=== PATIENT | female | born 1990 | race African-American/Black ===

== ENCOUNTER 2017-11-18 14:50 | Emergency (ER) | payer MEDICAID ==
[~2017-11-18] VITALS: Ht 165.1 cm; Wt 154.2 kg
[~2017-11-18 14:50] MED LIST: ACHD5005 PO; AMOX400S52 PO; AMOX500C2 PO; AZIT-21 PO; AZTH250C PO; BUPR150T6; CEFP250T2; CEPH500C PO; CLAR-19 PO; CYCL10TA9 PO; CYCL5TAB11 PO; DEXM2.5T PO; DIPH50CA33; FLC150T PO; FRSM20T PO; FURO20TA4 PO; HCT25T PO; HYDR-3454 PO; HYDR118S10 PO; HYDR480S10 PO; IPRA3AMP19 IH; LMT25T; LTH450TCR; METH4TAB; METH4TAB PO; MONT10TA21; NAPR-243 PO; NF-XOP-HFA; NF-XOP-HFA IH; PHEN118S12; PRD10T PO; PRD50T PO; SULF1TAB34 PO; SULF1TAB38 PO; TRAM50TA2 PO; TRM50T PO; ZIPR60CA6; ZPR40C
--- OUTSIDE RECORDS SUMMARY | 2017-11-18 14:57 | XMS REPORT | Clinical Summary ---
Author Author [facility] Address Unknown Phone Unavailable Allergies Not on File Current Medications Not on file Active Problems Not on file Social History Tobacco Use Types Packs/Day Years Used Date Never Assessed Sex Assigned at Date Recorded Not on file Plan of Treatment Health Maintenance Due Date Last Done Comments Varicella Vaccines (1 of 2003 2 - 2 Dose Adolescent Series) DTaP,Tdap,and Td Vaccines 2009 (1 - Tdap) CERVICAL CANCER SCREENING 2011 Influenza Vaccine (#1) 2017 Results Not on filefrom Last 3 Months
--- OUTSIDE RECORDS SUMMARY | 2017-11-18 14:58 | XMS REPORT ---
Author Author BASIA DE LOS SANTOS Organization [facility] Address [address] [place] [address] Care Team Providers Care Blender Snuff Name Role Phone FILIBERTO BASIA Unavailable PROBLEMS Type Condition ICD9-CM Code [id number] Code Onset Dates Condition Status SNOMED Code Problem Unspecified backache 724.5 Active 311513306 Problem Unspecified otitis media 382.9 Active 54934224 Problem Essential hypertension, benign 401.1 Active 9570178 Problem Encounter for long-term (current) use of other medications V58.69 Active 318614589 Problem Lumbago 724.2 Active 232472189 Problem Pain in thoracic spine 724.1 Active 058168364 Problem Tenosynovitis of foot and ankle 727.06 Active 309729480 Problem Bipolar 1 disorder F31.9 Active 744183923 Problem Hypertension, benign I10 Active 64472690 Problem Unspecified episodic mood disorder 296.90 Active 263910755 Problem Anxiety state, unspecified 300.00 Active 511273335 Problem Scabies 133.0 Active 979799031 Problem Leukocytosis, unspecified 288.60 Active 340575956 ALLERGIES Unknown Allergies SOCIAL HISTORY No smoking Hx information available PLAN OF CARE VITAL SIGNS Height 65 in 2016-11-19 Weight 346 lbs 2016-11-19 Heart Rate 88 bpm 2016-11-19 Respiratory Rate 16 2016-11-19 BMI 57.57 kg/m2 2016-11-19 Blood pressure systolic 128 mmHg 2016-11-19 Blood pressure diastolic 84 mmHg 2016-11-19 MEDICATIONS Medication Instructions Dosage Frequency Start Date End Date Duration Status Hydrochlorothiazide 25 MG Orally Once a day 1 tablet 24h Nov, 30 day(s) Active Geodon 20 MG Orally Twice a day 1 capsule with food 12h Nov, 30 day(s) Active RESULTS No Results PROCEDURES Procedure Date Ordered Related Diagnosis Body Site Office Visit, Est Pt., Level 2 Nov 19, 2016 IMMUNIZATIONS No Known Immunizations
--- OUTSIDE RECORDS SUMMARY | 2017-11-18 14:58 | XMS REPORT | Continuity of Care Document ---
Author Author [facility] Address Unknown Phone Unavailable Allergies Active Description Code Type Severity Reaction Onset Reported/Identified Relationship to Patient Clinical Status Yes No Known Drug Allergies [id number] Drug Allergy Unknown N/A 12/09/2013 Yes narcotics OA N/A N /A 04/12/2014 Medications There is no data. 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 09/04/2010 729.5 PAIN IN LIMB 09/04/2010 278.01 OBESITY MORBID 09/04/2010 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 09/04/2010 729.5 PAIN IN LIMB 09/04/2010 NIA MARTINS MD 278.01 OBESITY MORBID 09/04/2010 NIA MARTINS MD 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 09/04/2010 NIA MARTINS MD 729.5 PAIN IN LIMB 09/04/2010 JUSTIN VU DO 278.01 OBESITY MORBID 09/04/2010 JUSTIN VU DO 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 09/04/2010 JUSTIN VU DO 729.5 PAIN IN LIMB 09/04/2010 JUSTIN VU DO 278.01 OBESITY MORBID 09/04/2010 JUSTIN VU DO 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 09/04/2010 JUSTIN VU DO 729.5 PAIN IN LIMB 09/06/2010 NIA MARTINS MD 278.01 OBESITY MORBID BMI >40 09/06/2010 NIA MARTINS MD 782.3 soft tissue swelling (non-joint) [Sx] 09/06/2010 JOANN PETERS MD 278.01 OBESITY MORBID BMI >40 09/06/2010 JOANN PETERS MD 782.3 soft tissue swelling (non-joint) [Sx] 09/06/2010 278.01 OBESITY MORBID BMI >40 09/06/2010 782.3 soft tissue swelling (non-joint) [Sx] 09/06/2010 278.01 OBESITY MORBID BMI >40 09/06/2010 782.3 soft tissue swelling (non-joint) [Sx] 09/06/2010 NIA MARTINS MD 278.01 OBESITY MORBID BMI >40 09/06/2010 NIA MARTINS MD 782.3 soft tissue swelling (non-joint) [Sx] 09/06/2010 JUSTIN VU DO 278.01 OBESITY MORBID BMI >40 09/06/2010 JUSTIN VU DO 782.3 soft tissue swelling (non-joint) [Sx] 09/06/2010 JUSTIN VU DO 278.01 OBESITY MORBID BMI >40 09/06/2010 JUSTIN VU DO 782.3 soft tissue swelling (non-joint) [Sx] 09/06/2010 Ot 729.81 09/06/2010 Ot 729.82 09/06/2010 Ot 782.3 02/15/2012 Ot 305.1 02/15/2012 Ot 466.0 02/15/2012 Ot 493.90 02/15/2012 Ot 786.2 02/17/2012 Ot 465.9 02/17/2012 Ot 786.2 06/06/2012 Ot 277.7 06/06/2012 Ot 278.01 06/06/2012 Ot 780.39 06/06/2012 Ot 786.50 06/06/2012 Ot 787.20 06/06/2012 Ot 825.25 06/06/2012 Ot E888.9 06/06/2012 Ot V85.44 09/14/2012 NIA MARTINS MD 133.0 SCABIES 09/14/2012 NIA MARTINS MD 724.5 BACKACHE 09/14/2012 JOANN PETERS MD 133.0 SCABIES 09/14/2012 JOANN PETERS MD 724.5 BACKACHE 09/14/2012 133.0 SCABIES 09/14/2012 724.5 BACKACHE 09/14/2012 133.0 SCABIES 09/14/2012 724.5 BACKACHE 09/14/2012 NIA MARTINS MD 133.0 SCABIES 09/14/2012 NIA MARTINS MD 724.5 BACKACHE 09/14/2012 VU DO, JUSTIN K 133.0 SCABIES 09/14/2012 VU DO, JUSTIN K 724.5 BACKACHE 09/14/2012 VU DO, JUSTIN K 133.0 SCABIES 09/14/2012 VU DO, JUSTIN K 724.5 BACKACHE 10/15/2012 Ot 327.23 11/02/2012 Ot 462 11/02/2012 Ot 463 11/26/2012 Ot 462 01/01/2013 Ot 724.2 01/08/2013 NIA MARTINS MD 288.60 LEUKOCYTOSIS 01/08/2013 NIA MARTINS MD 300.00 anxiety 01/08/2013 NIA MARTINS MD 401.1 ESSENTIAL HYPERTENSION BENIGN 01/08/2013 JOANN PETERS MD 288.60 LEUKOCYTOSIS 01/08/2013 JOANN PETERS MD 300.00 anxiety 01/08/2013 JOANN PETERS MD 401.1 ESSENTIAL HYPERTENSION BENIGN 01/08/2013 288.60 LEUKOCYTOSIS 01/08/2013 300.00 anxiety 01/08/2013 401.1 ESSENTIAL HYPERTENSION BENIGN 01/08/2013 288.60 LEUKOCYTOSIS 01/08/2013 300.00 anxiety 01/08/2013 401.1 ESSENTIAL HYPERTENSION BENIGN 01/08/2013 NIA MARTINS MD 288.60 LEUKOCYTOSIS 01/08/2013 NIA MARTINS MD 300.00 anxiety 01/08/2013 NIA MARTINS MD 401.1 ESSENTIAL HYPERTENSION BENIGN 01/08/2013 VU DO, JUSTIN K 288.60 LEUKOCYTOSIS 01/08/2013 VU DO, JUSTIN K 300.00 anxiety 01/08/2013 CYRUS VU DOSol Vela 401.1 ESSENTIAL HYPERTENSION BENIGN 01/08/2013 CYRUS VU DOA K 288.60 LEUKOCYTOSIS 01/08/2013 CYRUS VU DOA K 300.00 anxiety 01/08/2013 JUSTIN VU DO 401.1 ESSENTIAL HYPERTENSION BENIGN 02/03/2013 Ot 493.90 02/03/2013 Ot 786.50 03/02/2013 382.9 OTITIS MEDIA 03/02/2013 382.9 OTITIS MEDIA 03/02/2013 NIA MARTINS MD 382.9 OTITIS MEDIA 03/02/2013 MIRELLA JUSTIN ROSA 382.9 OTITIS MEDIA 03/02/2013 MIRELLA JUSTIN ROSA 382.9 OTITIS MEDIA 03/11/2013 727.06 TENOSYNOVITIS OF FOOT AND ANKLE 03/11/2013 NIA MARTINS MD 727.06 TENOSYNOVITIS OF FOOT AND ANKLE 03/11/2013 JUSTIN VU DO 727.06 TENOSYNOVITIS OF FOOT AND ANKLE 03/11/2013 JUSTIN VU DO 727.06 TENOSYNOVITIS OF FOOT AND ANKLE 03/12/2013 JOSETTE HAYES, ADALI Horton Ot 382.9 03/12/2013 JOSETTE HAYES, ADALI Sol Ot 388.70 04/02/2013 NIA MARTINS MD 296.90 MOOD DISORDER NOS 04/02/2013 JUSTIN VU DO 296.90 MOOD DISORDER NOS 04/02/2013 JUSTIN VU DO 296.90 MOOD DISORDER NOS 06/04/2013 NIA MARTINS MD V58.69 MEDICATION HIGH RISK 06/04/2013 JUSTIN VU DO V58.69 MEDICATION HIGH RISK 06/04/2013 JUSTIN VU DO V58.69 MEDICATION HIGH RISK 06/12/2013 PARMJIT HAYES, ARLENE T Ot 724.1 06/12/2013 PARMJIT HAYES, ARLENE Henderson Ot 847.1 06/12/2013 PARMJIT HAYES, ARLENE T Ot E000.8 06/12/2013 PARMJIT HAYES, ARLENE T Ot E015.0 06/12/2013 PARMJIT HAYES, ARLENE Henderson Ot E849.0 06/12/2013 PARMJIT HAYES, ARLENE Henderson Ot E928.9 06/28/2013 FRAN HAYES, JOANN M Ot 278.01 06/28/2013 FRAN HAYES, JOANN M Ot 300.00 06/28/2013 FRAN HAYES, JOANN M Ot 311 06/28/2013 FRAN HAYES, JOANN M Ot 314.01 06/28/2013 FRAN HAYES, JOANN M Ot 338.29 06/28/2013 FRAN HAYES, JOANN M Ot 969.70 06/28/2013 FRAN HAYES, JOANN M Ot E849.0 06/28/2013 FRAN HAYES, JOANN M Ot E854.2 06/28/2013 FRAN HAYES, JOANN M Ot V03.82 06/28/2013 FRAN HAYES, JOANN M Ot V85.45 07/10/2013 ZARI HAYES, ANGELA R Ot 490 07/10/2013 ZARI HAYES, ANGELA R Ot 786.05 09/12/2013 JOSETTE HAYES, ADALI A Ot 910.4 09/12/2013 JOSETTE HAYES, ADALI A Ot E000.8 09/12/2013 JOSETTE HAYES, ADALI A Ot E906.4 12/09/2013 JOSETTE HAYES, ADALI A Ot 466.0 12/09/2013 JOSETTE HAYES, ADALI A Ot 786.05 03/30/2014 JUANA HAYES, JESSIE Ramirez Ot 682.3 08/30/2014 MIHAI MONAHAN TRANSMISSION TESTER Ot 724.2 08/30/2014 MIHAI MONAHAN TRANSMISSION TESTER Ot 724.4 09/01/2014 VU DO JUSTIN K 724.1 PAIN IN THORACIC SPINE 09/01/2014 VU DO JUSTIN K 724.2 BACK PAIN, LOWER 09/01/2014 VU DO JUSTIN K 724.1 PAIN IN THORACIC SPINE 09/01/2014 VU DO, JUSTIN K 724.2 BACK PAIN, LOWER 10/30/2014 Ot 242.90 10/30/2014 JEWEL MELENDREZ MIXER WHIPPED TOPPING Ot 724.1 10/30/2014 JEWEL MELENDREZ MIXER WHIPPED TOPPING Ot 724.2 10/30/2014 MIHAI MONAHAN TRANSMISSION TESTER Ot 847.2 10/30/2014 MIHAI MONAHAN TRANSMISSION TESTER Ot 959.19 10/30/2014 MIHAI MONAHAN TRANSMISSION TESTER Ot E000.8 10/30/2014 MIHAI MONAHAN TRANSMISSION TESTER Ot E812.0 12/28/2014 JOSETTE HAYES, ADALI A Ot 401.9 12/28/2014 JOSETTE HAYES, ADALI A Ot 881.00 12/28/2014 JOSETTE HAYES, ADALI A Ot 920 12/28/2014 JOSETTE HAYES, ADALI A Ot E000.8 12/28/2014 JOSETTE HAYES, ADALI A Ot E968.9 05/02/2015 Ot 242.90 05/02/2015 PARVINJEWEL MIXER WHIPPED TOPPING Ot 724.1 05/02/2015 MADJEWEL Chandra MIXER WHIPPED TOPPING Ot 724.2 07/24/2015 JUANA HAYES, JESSIE Ramirez Ot 305.00 07/24/2015 JESSIE ARIAS MD Ot 311 07/24/2015 JUANA HAYES, JESSIE Ramirez Ot 780.39 07/24/2015 JESSIE ARIAS MD Ot V58.69 Procedures Code Description [place] [address] ROUTINE VENIPUNCTURE 01/08/2013 ORTHO Isak Durán 01/08/2013 PSYCH MASON LAROSE 01/08/2013 19496 A1C (IN-HOUSE) 01/08/2013 69051 CBC 01/08/2013 92980 CMP 01/08/2013 6775864 GFR CALC (RESULT ONLY) 01/08/2013 22429 TSH 01/08/2013 51146 T4 FREE 01/08/2013 00454 ROUTINE VENIPUNCTURE 03/02/2013 60950 CBC 03/02/2013 94514 BMP 03/02/2013 20489 MAGNESIUM 03/02/2013 0687233 GFR CALC (RESULT ONLY) 03/02/2013 56325 XRAY ANKLE R, 2 VIEWS 03/11/2013 67007 URINE DRUG SCREEN (IN-HOUSE ) 06/04/2013 85597 ROUTINE VENIPUNCTURE 09/01/2014 85546 CBC 09/01/2014 8771650 GFR CALC (RESULT ONLY) 09/01/2014 73733 CMP 09/01/2014 37180 TSH 09/01/2014 86029 XRAY THORACIC SPINE 3 VIEWS 09/02/2014 19451 XRAY LUMBAR SPINE MIN 4 VIEWS 09/02/2014 Results There is no data. Encounters ACCT No. Visit Date/Time Discharge Status Pt. Type Provider Facility Loc./Unit Complaint [id number] 09/01/2014 14:40:00 09/01/2014 23:59:59 CLS Outpatient JUSTIN VU DO [id number] 09/01/2014 14:40:00 09/01/2014 23:59:59 CLS Outpatient JUSTIN VU DO [id number] 07/13/2013 11:43:00 07/13/2013 23:59:59 CLS Outpatient NIA MARTINS MD [id number] 01/08/2013 14:06:00 01/08/2013 23:59:59 CLS Outpatient NIA MARTINS MD [id number] 01/08/2013 14:06:00 01/08/2013 23:59:59 CLS Outpatient JOANN PETERS MD [id number] 03/11/2013 13:22:00 Document Registration [id number] 03/02/2013 13:54:00 Document Registration [id number] 07/24/2015 01:49:00 07/24/2015 03:49:00 DIS Emergency JESSIE ARIAS MD [facility] [id number] 05/02/2015 17:00:00 05/02/2015 17:07:00 DIS Emergency JESSIE ARIAS MD [facility] ER [id number] 04/03/2015 18:42:00 04/03/2015 23:59:59 CLS Outpatient CHIN HOUSTON [facility] [id number] 12/28/2014 02:44:00 12/28/2014 03:05:00 DIS Emergency ADALI FINCH MD [facility] ER [id number] 10/30/2014 11:03:00 10/30/2014 12:42:00 DIS Emergency MIHAI MONAHAN APRN [facility] ER [id number] 09/07/2014 01:39:00 09/07/2014 23:59:59 CLS Outpatient JEWEL MELENDREZ [facility] RAD [id number] 08/30/2014 19:28:00 08/30/2014 20:32:00 DIS Emergency MIHAI MONAHAN APRN [facility] ER [id number] 03/30/2014 22:16:00 03/30/2014 22:54:00 DIS Emergency JUANA HAYES, JESSIE Ramirez [facility] ER [id number] 12/09/2013 04:23:00 12/09/2013 05:41:00 DIS Emergency JOSETTE HAYES, ADALI Horton [facility] ER [id number] 09/12/2013 02:07:00 09/12/2013 02:34:00 DIS Emergency ADALI FINCH MD [facility] ER [id number] 07/10/2013 05:37:00 07/10/2013 07:43:00 DIS Emergency ZARI HAYES, ANGELA England [facility] ER [id number] 06/28/2013 00:21:00 06/28/2013 13:20:00 DIS Inpatient FRAN HAYES, JOANN Burleson [facility] ICU [id number] 06/12/2013 01:20:00 06/12/2013 02:08:00 DIS Emergency PARMJIT HAYES, ARLENE Henderson [facility] ER [id number] 03/12/2013 22:00:00 03/12/2013 22:29:00 DIS Emergency ADALI FINCH MD [facility] ER [id number] 10/30/2014 11:04:00 Document Registration [id number] 10/30/2014 11:04:00 Document Registration [id number] 10/30/2014 11:04:00 Document Registration [id number] 10/30/2014 11:04:00 Document Registration [id number] 10/30/2014 11:04:00 Document Registration [id number] 10/30/2014 11:04:00 Document Registration [id number] 02/03/2013 22:39:00 Document Registration [id number] 01/01/2013 01:17:00 Document Registration [id number] 11/25/2012 21:54:00 Document Registration [id number] 11/02/2012 21:59:00 Document Registration [id number] 10/14/2012 21:12:00 Document Registration [id number] 06/05/2012 01:40:00 Document Registration [id number] 02/17/2012 19:51:00 Document Registration [id number] 02/15/2012 11:06:00 Document Registration [id number] 09/06/2010 17:03:00 Document Registration [id number] 02/01/2010 10:44:00 Document Registration
[2017-11-18 15:38] VITALS: BP 165/112
== END 2017-11-18 15:38 | disposition left against medical advice (07) ==
LOC: EDUNIT# 14:50 → ER 14:53
DX: R05 Cough (principal); R09.81 Nasal congestion; R50.9 Fever, unspecified; R09.89 Other specified symptoms and signs involving the circulatory and respiratory systems
CPT/HCPCS: 99282

== ENCOUNTER → 2018-10-01 | Emergency (ER) | payer SELFPAY ==
[~2018-10-01] VITALS: Ht 165.1 cm; Wt 158.8 kg
--- NOTE | 2018-10-01 15:08 | ED General ---
General Chief Complaint: Fever-Adult/Adol Stated Complaint: MOUTH SORES Nursing Triage Note: Pt has complaint of a fever for the past 3 days and body aches generalized for 2 weeks (when she got out of penitentiary). Pt stated fever blisters appeared on lips/mouth. Nursing Sepsis Screen: No Definite Risk Source of Information: Patient Exam Limitations: Other (Patient continues to mess with her smartphone and has to be asked to put the phone down to do the history and exam.) History of Present Illness Date Seen by Provider: Oct 01, 2018 Time Seen by Provider: 14:38 Initial Comments 27 yo female patient presents to the emergency department with c/o sores on the mouth and a fever. patient states her fever was 102 degrees F yesterday. Patient was recently released from penitentiary approximately 2 weeks ago and went to rehabilitation in the [place], [place]. Patient states she was seen at [facility] earlier today with prescriptions called to [facility] Reports they tried to draw labs, but couldn't get blood and was told to "come to the ER". Patient denies picking the prescriptions up. Patient states she is homeless and is here so that she can have a place to stay. Patient denies having money. Timing/Duration: 2-3 Days, Constant Modifying Factors: worse with Other (denies taking OTC meds or picking up the prescribed medications.) Allergies and Home Medications Allergies Coded Allergies: No Known Drug Allergies (Unverified , 12/09/13) pt denies allergies Home Medications No Active Prescriptions or Reported Meds Patient Home Medication List Home Medication List Reviewed: Yes Review of Systems Review of Systems Constitutional: chills, fever, malaise EENTM: ear pain, nose congestion; No mouth pain, No throat pain, No throat swelling Respiratory: cough, phlegm Cardiovascular: no symptoms reported Gastrointestinal: no symptoms reported Genitourinary: no symptoms reported Musculoskeletal: other (generalized bodyaches) Skin: see HPI, lesions (sores on the lips/mouth) Psychiatric/Neurological: No Symptoms Reported All Other Systems Reviewed Negative Unless Noted: Yes (Negative excepted noted.) Past Fxmxyuw-Ycdnmp-Bnvoat Hx Past Med/Social Hx: Reviewed Nursing Past Med/Soc Hx Patient Social History Recent Foreign Travel: No Contact w/Someone Who Travel: No Recent Infectious Disease Expo: No Recent Hopitalizations: No Physical Abuse: No Sexual Abuse: No Mistreated: No Fear: No Immunizations Up To Date Tetanus Booster (TDap): Unknown Date of Pneumonia Vaccine: Aug 17, 2011 Date of Influenza Vaccine: Sep 17, 2014 Seasonal Allergies Seasonal Allergies: No Past Medical History Surgeries: No (EDG 2006) Respiratory: Yes Asthma, Sleep Apnea Currently Using CPAP: No Currently Using BIPAP: No Cardiac: Yes ("HEART BEATS VERY FAST AND THEN PAUSES") Hypertension, Irregular Heartbeat Neurological: Yes (reports history of seizures) Last Menstrual Period: Aug 29, 2018 Reproductive Disorders: No Female Reproductive Disorders: Denies Sexually Transmitted Disease: No HIV/AIDS: No Gastrointestinal: No Ulcer Musculoskeletal: Yes Arthritis, Chronic Back Pain, Spasms Endocrine: Yes (unsure of thyroid issue) Hyperthyroidism Cancer: No Psychosocial: Yes (Cutting behavior) ADD/ADHD, Suicide Attempts, Depression Integumentary: No Blood Disorders: No Family Medical History Reviewed Nursing Family Hx No Pertinent Family Hx Physical Exam Vital Signs Vital Signs - First Documented 10/01/18 14:26 Temp 99.3 Pulse 90 Resp 16 B/P (MAP) 137/96 (110) Pulse Ox 97 O2 Delivery Room Air Capillary Refill : Less Than 3 Seconds Height, Weight, BMI Height: 5'5.00" Weight: 350lbs. 0.0oz. 158.090041ph; BMI Method:Stated General Appearance: No Apparent Distress, WD/WN, Obese Eyes: Bilateral Eye Normal Inspection, Bilateral Eye PERRL, Bilateral Eye EOMI HEENT: PERRL/EOMI, TMs Normal, Pharyngeal Erythema; No Tonsillar Exudate, No Tonsillar Enlargement, No Other (no swelling to the posterior pharynx or tongue. scabbed sores to the lips without erythema or drainage. ) Neck: Full Range of Motion, Supple, Lymphadenopathy (L) (TTP.), Lymphadenopathy (R) (TTP) Respiratory: Lungs Clear, Normal Breath Sounds, No Accessory Muscle Use, No Respiratory Distress Cardiovascular: Regular Rate, Rhythm, No Murmur Back: Normal Inspection Extremity: Normal Capillary Refill Neurologic/Psychiatric: Alert, Oriented x3, Normal Mood/Affect Skin: Normal Color, Warm/Dry, Other (scabbed sores to the lips without erythema or drainage. ) Progress/Results/Core Measures Suspected Sepsis Recent Fever Within 48 Hours: Yes Infection Criteria Present: Suspected New Infection New/Unexplained Altered Menta: No Sepsis Screen: No Definite Risk SIRS Temperature:99.3 Pulse: 90 Respiratory Rate: 16 Blood Pressure 137 /96 Mean: 110 Results/Orders Vital Signs/I&O 10/01/18 14:26 Temp 99.3 Pulse 90 Resp 16 B/P (MAP) 137/96 (110) Pulse Ox 97 O2 Delivery Room Air Capillary Refill : Less Than 3 Seconds Blood Pressure Mean: 110 Departure Communication (Admissions) Patient case discussed with Ekta Mckeon APRN at [facility]. Ekta reports doing a CXR on the patient which was negative. She did call Acyclovir 800 mg po 5x/d [id number] to [facility]. She reports the lab at [facility] attempted to draw HSV 1/2 labs on Eugenia x2 without success. Patient was agitated and refused further attempts. Patient reported to the flower shop laborer/designer that she was "just going to go to the ED to be seen". Ekta also states the patient is staying at the [facility] and walked to their clinic from the apartment. Patient now states she is able to stay with her mother at [facility] for a few days. I have advised the patient to picking crew supervisor the medications that were called to [facility] by [facility] and to continue staying with her mother until she finds somewhere else to stay. She is to take Tylenol and ibuprofen [id number] as directed for pain or fevers. Eugenia verbalizes understanding and agrees with the treatment plan. Impression Primary Impression: Herpes simplex labialis Disposition: 01 HOME, SELF-CARE Condition: Improved Departure-Patient Inst. Decision time for Depature: 15:22 Referrals: [facility] (PCP/Family) Primary Care Physician Patient Instructions: Cold Sores (Oral Herpes) (DC) Add. Discharge Instructions: All discharge instructions reviewed with patient and/or family. Voiced understanding. swimming pool maintenance supervisor the medications that were called to [facility] by [facility] and take as prescribed. Tylenol over the counter as directed by the appraisal analyst for pain and/or fever. Motrin 800 mg by mouth every 8 hours as needed for pain and/or fever. Drink plenty of fluids. Follow- up with [facility] for recheck. Return to the emergency department for worsened symptoms or any other concerns. Scripts No Active Prescriptions or Reported Meds Images Mouth/Nose 1 - scab 2 - scattered scabs ZENA MERCEDES Oct 01, 2018 15:08
[2018-10-01 15:31] VITALS: BP 132/80
== END | disposition home or self-care (01) ==
LOC: EDUNIT# 14:11 → ER 14:12
DX: B00.1 Herpesviral vesicular dermatitis (principal); J45.909 Unspecified asthma, uncomplicated; G47.30 Sleep apnea, unspecified; I10 Essential (primary) hypertension; G40.909 Epilepsy, unspecified, not intractable, without status epilepticus; E05.90 Thyrotoxicosis, unspecified without thyrotoxic crisis or storm; F90.9 Attention-deficit hyperactivity disorder, unspecified type; F32.9 Major depressive disorder, single episode, unspecified; Z91.5 Personal history of self-harm; Z87.19 Personal history of other diseases of the digestive system
CPT/HCPCS: 99282

== ENCOUNTER 2020-02-10 18:08 | Inpatient (IN) | payer MEDICAID ==
[~2020-02-10] VITALS: Ht 165.1 cm; Wt 168.3 kg
[~2020-02-10 18:08] MED LIST changes: -TRAM50TA2 PO
[2020-02-10] MEDS ORDERED: KETOROLAC 30 MG/ML VIAL IVP ONE (18:45)
[2020-02-10] MEDS ORDERED: NS IV 1000 ML 1,000 ML IV ONE (18:45)
--- NOTE | 2020-02-10 18:47 | ED General ---
General Chief Complaint: Respiratory Problems Stated Complaint: SOB Nursing Triage Note: Pt arrives via [facility] ems cart (wearing simple mask) with c/o SOA, cough, et fever. Pt reports onset of symptoms to began on 01/11/20. Pt reports productive cough stating, "sometimes I spit up yellow stuff." Pt unaware if she has been exposed to anyone with COVID19. Pt reports hx asthma. PPE donned by ED staff. Nursing Sepsis Screen: Possible Severe Sepsis Risk Source of Information: Patient Exam Limitations: No Limitations History of Present Illness Date Seen by Provider: Feb 10, 2020 Time Seen by Provider: 18:25 Initial Comments This 29-year-old young lady presents to the emergency room with flulike symptoms including fever, sore throat, productive cough, and nausea. She has been ill for 2 days. She presents to the hospital via EMS because she did not feel she could manage well at home anymore. She does have history of asthma and COPD and continues to smoke. She states this feels different than her usual upper respiratory infection because she is actually not wheezing like she usually does. She is flushed and appears ill. She reports her cough this evening has been tinged with blood. She denies any recent travel or known exposure to patients with coronavirus or under investigation for pena virus. Allergies and Home Medications Allergies Coded Allergies: No Known Drug Allergies (Unverified , 12/09/13) pt denies allergies Home Medications No Active Prescriptions or Reported Meds Patient Home Medication List Home Medication List Reviewed: Yes Review of Systems Review of Systems Constitutional: see HPI EENTM: see HPI Respiratory: see HPI Cardiovascular: no symptoms reported Gastrointestinal: see HPI Genitourinary: no symptoms reported : No Musculoskeletal: no symptoms reported Skin: other (flushed and diaphoretic) Psychiatric/Neurological: No Symptoms Reported Hematologic/Lymphatic: No Symptoms Reported Immunological/Allergic: no symptoms reported Past Ijxgptl-Jcvisf-Gobxsr Hx Past Med/Social Hx: Reviewed Nursing Past Med/Soc Hx Patient Social History Alcohol Use: Denies Use Recreational Drug Use: Yes Drug of Choice: Methamphetamines Smoking Status: Current Everyday Smoker Type Used: Cigarettes 2nd Hand Smoke Exposure: Yes Recent Foreign Travel: No Contact w/Someone Who Travel: No Recent Infectious Disease Expo: No Recent Hopitalizations: No Immunizations Up To Date Tetanus Booster (TDap): Unknown Date of Pneumonia Vaccine: Aug 17, 2011 Date of Influenza Vaccine: Sep 17, 2014 Seasonal Allergies Seasonal Allergies: No Past Medical History Surgeries: Yes (EGD 2006) Respiratory: Yes Asthma, Sleep Apnea, COPD Currently Using CPAP: No Currently Using BIPAP: No Cardiac: Yes ("HEART BEATS VERY FAST AND THEN PAUSES") Chronic Edema/Swelling, Hypertension, Irregular Heartbeat Neurological: Yes (reports history of seizures) : No Reproductive Disorders: No Female Reproductive Disorders: Denies Sexually Transmitted Disease: No HIV/AIDS: No Gastrointestinal: No Ulcer Musculoskeletal: Yes Arthritis, Chronic Back Pain, Spasms Endocrine: Yes (unsure of thyroid issue) Hyperthyroidism Cancer: No Psychosocial: Yes (Cutting behavior) ADD/ADHD, Suicide Attempts, Depression Integumentary: No Blood Disorders: No Family Medical History No Pertinent Family Hx Physical Exam-Suspected Sepsis Physical Exam Vital Signs Vital Signs - First Documented 02/10/20 18:10 Temp 38.6 Pulse 104 Resp 20 B/P (MAP) 131/68 (89) Pulse Ox 97 O2 Delivery Room Air Capillary Refill : Less Than 3 Seconds Blood Pressure Mean: 89 Height, Weight, BMI Height: 5'5.00" Weight: 350lbs. 0.0oz. 158.303277or; 56.00 BMI Method:Stated General Appearance: WD/WN, Moderate Distress HEENT: PERRL/EOMI, Normal ENT Inspection, Other (tympanic membranes retracted. Tonsillar enlargement without exudate or significant erythema) Neck: Normal Inspection; No JVD Respiratory: Lungs Clear, Normal Breath Sounds, No Accessory Muscle Use, No Respiratory Distress Cardiovascular: No Murmur, Tachycardia, Other (mild lower extremity edema) Gastrointestinal: Normal Bowel Sounds, Soft, Tenderness (mild in the epigastrium) Extremity: Non Tender, Swelling (mild lower extremity edema) Neurologic/Psychiatric: Alert, Oriented x3, No Motor/Sensory Deficits, manager of human resources II- XII Norm as Tested, Other (mildly anxious) Skin: other (warm and flushed, slightly diaphoretic) Focused Exam Lactate Level 02/10/20 19:10: Lactic Acid Level 1.16 Lactic Acid Level Progress/Results/Core Measures Suspected Sepsis Recent Fever Within 48 Hours: Yes Infection Criteria Present: Suspected New Infection New/Unexplained Altered Menta: No Sepsis Screen: Possible Severe Sepsis Risk SIRS Temperature: Pulse: 104 Respiratory Rate: 20 Laboratory Tests 02/10/20 19:10: White Blood Count 15.3H Blood Pressure 131 /68 Mean: 89 02/10/20 19:10: Lactic Acid Level 1.16 Laboratory Tests 02/10/20 19:10: Creatinine 0.78, Platelet Count 225, Total Bilirubin 0.4 Results/Orders Lab Results Laboratory Tests Test 02/10/20 18:30 02/10/20 18:40 02/10/20 19:10 Range/Units Urine Color YELLOW Urine Clarity CLEAR Urine pH 7.5 5-9 Urine Specific Center 1.015 L 1.016-1.022 Urine Protein 1+ H NEGATIVE Urine Glucose (UA) NEGATIVE NEGATIVE Urine Ketones NEGATIVE NEGATIVE Urine Nitrite NEGATIVE NEGATIVE Urine Bilirubin NEGATIVE NEGATIVE Urine Urobilinogen 0.2 < = 1.0 MG/DL Urine Leukocyte Esterase 2+ H NEGATIVE Urine RBC (Auto) 3+ H NEGATIVE Urine RBC 50-100 H /HPF Urine WBC 25-50 H /HPF Urine Squamous Epithelial Cells 5-10 /HPF Urine Crystals NONE /LPF Urine Bacteria FEW H /HPF Urine Casts NONE /LPF Urine Mucus NEGATIVE /LPF Urine Culture Indicated YES Urine Opiates Screen NEGATIVE NEGATIVE Urine Oxycodone Screen NEGATIVE NEGATIVE Urine Methadone Screen NEGATIVE NEGATIVE Urine Propoxyphene Screen NEGATIVE NEGATIVE Urine Barbiturates Screen NEGATIVE NEGATIVE Ur Tricyclic Antidepressants Screen NEGATIVE NEGATIVE Urine Phencyclidine Screen NEGATIVE NEGATIVE Urine Amphetamines Screen NEGATIVE NEGATIVE Urine Methamphetamines Screen POSITIVE H NEGATIVE Urine Benzodiazepines Screen NEGATIVE NEGATIVE Urine Cocaine Screen NEGATIVE NEGATIVE Urine Cannabinoids Screen NEGATIVE NEGATIVE Group A Streptococcus Screen NEGATIVE NEGATIVE White Blood Count 15.3 H 4.3-11.0 10^3/uL Red Blood Count 4.80 4.35-5.85 10^6/uL Hemoglobin 13.2 11.5-16.0 G/DL Hematocrit 41 35-52 % Mean Corpuscular Volume 86 80-99 FL Mean Corpuscular Hemoglobin 28 25-34 PG Mean Corpuscular Hemoglobin Concent 32 32-36 G/DL Red Cell Distribution Width 13.3 10.0-14.5 % Platelet Count 225 130-400 10^3/uL Mean Platelet Volume 11.0 H 7.4-10.4 FL Neutrophils (%) (Auto) 77 H 42-75 % Lymphocytes (%) (Auto) 15 12-44 % Monocytes (%) (Auto) 7 0-12 % Eosinophils (%) (Auto) 1 0-10 % Basophils (%) (Auto) 0 0-10 % Neutrophils # (Auto) 11.8 H 1.8-7.8 X 10^3 Lymphocytes # (Auto) 2.2 1.0-4.0 X 10^3 Monocytes # (Auto) 1.1 H 0.0-1.0 X 10^3 Eosinophils # (Auto) 0.1 0.0-0.3 10^3/uL Basophils # (Auto) 0.0 0.0-0.1 10^3/uL Neutrophils % (Manual) 76 % Lymphocytes % (Manual) 16 % Monocytes % (Manual) 8 % Blood Morphology Comment NORMAL Sodium Level 137 135-145 MMOL/L Potassium Level 4.0 3.6-5.0 MMOL/L Chloride Level 104 98-107 MMOL/L Carbon Dioxide Level 24 21-32 MMOL/L Anion Gap 9 5-14 MMOL/L Blood Urea Nitrogen 7 7-18 MG/DL Creatinine 0.78 0.60-1.30 MG/DL Estimat Glomerular Filtration Rate > 60 BUN/Creatinine Ratio 9 Glucose Level 93 70-105 MG/DL Lactic Acid Level 1.16 0.50-2.00 MMOL/L Calcium Level 9.3 8.5-10.1 MG/DL Corrected Calcium 9.5 8.5-10.1 MG/DL Total Bilirubin 0.4 0.1-1.0 MG/DL Aspartate Amino Transf (AST/SGOT) 12 5-34 U/L Alanine Aminotransferase (ALT/SGPT) 16 0-55 U/L Alkaline Phosphatase 81 40-136 U/L C-Reactive Protein High Sensitivity 5.26 H 0.00-0.50 MG/DL Total Protein 6.9 6.4-8.2 GM/DL Albumin 3.8 3.2-4.5 GM/DL Procalcitonin 0.06 <0.10 NG/ML Serum Test, Qualitative NEGATIVE NEGATIVE Micro Results Microbiology 02/10/20 Influenza Types A,B Antigen (NICKI) - Final, Complete My Orders Orders - ARLENE PARNELL MD Cbc With Automated Diff (02/10/20 18:24) Comprehensive Metabolic Panel (02/10/20 18:24) Blood Culture (02/10/20 18:24) Sputum Culture (02/10/20 18:24) Urinalysis (02/10/20 18:24) Urine Culture (02/10/20 18:24) Protime With Inr (02/10/20 18:24) Partial Thromboplastin Time (02/10/20 18:24) Chest 1 View, Ap/Pa Only (02/10/20 18:24) Ed Iv/Invasive Line Start (02/10/20 18:24) Ed Iv/Invasive Line Start (02/10/20 18:24) Vital Signs Adult Sepsis Patie Q15M (02/10/20 18:24) O2 (02/10/20 18:24) Remove Rings In Anticipation O (02/10/20 18:24) Lactic Acid Analyzer (02/10/20 18:24) Influenza A And B Antigens (02/10/20 18:24) Rapid Strep A Screen (02/10/20 18:24) Hs C Reactive Protein (02/10/20 18:25) Ns Iv 1000 Ml (Sodium Chloride 0.9%) (02/10/20 18:45) Ondansetron Injection (Zofran Injectio (02/10/20 19:00) Acetaminophen Tablet (Tylenol Tablet) (02/10/20 19:00) Hcg,Qualitative Serum (02/10/20 18:56) Drug Screen Stat (Urine) (02/10/20 19:04) Manual Differential (02/10/20 19:10) Piperacillin Sodium/Tazobactam (Zosyn Vi (02/10/20 19:30) Procalcitonin (Pct) (02/10/20 19:53) Vancomycin Injection (Vancomycin Injecti (02/10/20 20:00) Medications Given in ED Current Medications Medications Dose Ordered Sig/Tamiko Route Start Time Stop Time Status Last Admin Dose Admin Acetaminophen 1,000 mg ONCE ONCE PO 02/10/20 19:00 02/10/20 19:01 DC 02/10/20 19:05 1,000 MG Ondansetron HCl 8 mg ONCE ONCE IVP 02/10/20 19:00 02/10/20 19:01 DC 02/10/20 19:02 8 MG Piperacillin Sod/ Tazobactam Sod 4.5 gm/Sodium Chloride 100 ml @ 200 mls/hr ONCE ONCE IV 02/10/20 19:30 02/10/20 19:59 DC 02/10/20 19:48 200 MLS/HR Sodium Chloride 1,000 ml @ 0 mls/hr Q0M ONCE IV 02/10/20 18:45 02/10/20 18:47 DC 02/10/20 19:03 1,000 MLS/HR Vital Signs/I&O 02/10/20 02/10/20 02/10/20 02/10/20 18:10 20:44 21:03 22:15 Temp 38.6 37.7 37.6 Pulse 104 97 87 96 Resp 20 20 22 B/P (MAP) 131/68 (89) 134/78 117/59 115/63 (80) Pulse Ox 97 98 97 97 O2 Delivery Room Air Room Air Room Air Room Air 02/10/20 02/11/20 02/11/20 23:19 00:42 00:42 Temp 37.1 37.2 Pulse 100 102 Resp 22 22 B/P (MAP) 122/57 (78) 122/65 (84) Pulse Ox 97 97 O2 Delivery Room Air Room Air Room Air Capillary Refill : Less Than 3 Seconds Blood Pressure Mean: 89 Progress Note #1: Time: 19:03 Progress Note Patient was seen and examined. Septic workup is being pursued. COVID-19 precautions are being followed. She is being treated with Tylenol, Zofran and a liter of IV fluid. Progress Note #2: Time: 20:20 Progress Note Septic workup revealed possible urinary tract infection. Chest x-ray did not reveal pneumonia by radiologist interpretation but it was a limited one view. Patient remains stable. Patient admits to being an IV methamphetamine user. We will use broad-spectrum antibiotic therapy starting with Zosyn and adding vancomycin. Influenza and rapid strep screening were negative. Because of her respiratory symptoms, COVID 19 precautions will be maintained. She has been tested for COVID-19 and appropriate paperwork completed. Case was discussed with Dr. Paul. Diagnostic Imaging Diagonstic Imaging: Xray Plain Films/CT/US/NM/MRI: chest Comments Chest x-ray viewed by me and report reviewed. See report below: NAME: LUÍS VICTORIA [facility] REC#: [id number] PT STATUS: REG ER : 1990 PHYSICIAN: ARLEEN PARNELL MD ADMIT DATE: 02/10/20/ER Draft Date of Exam:02/10/20 CHEST 1 VIEW, AP/PA ONLY INDICATION: Cough. Comparison is made to the prior study from 12/09/2013. FINDINGS: Lungs demonstrate no focal infiltrate or consolidation. There is no effusion. There is no pneumothorax. Heart size and mediastinal contours are appropriate and pulmonary vascularity appears normal. No acute or suspicious osseous abnormality is demonstrated. IMPRESSION: 1. No radiographic evidence of an acute cardiopulmonary process. Dictated on workstation # [id number] Dict: 02/10/202002 Trans: 02/10/202009 ELEANOR [id number] Interpreted by: HOLLIS CHAVEZ MD Departure Communication (Admissions) Time/Spoke to Admitting Phy: 20:16 Dr. Paul Impression Primary Impression: Sepsis Qualified Codes: A41.9 - Sepsis, unspecified organism Additional Impressions: Urinary tract infection Qualified Codes: N39.0 - Urinary tract infection, site not specified Hemoptysis Flu-like symptoms IV drug user Disposition: ADMITTED INPATIENT Condition: Stable Admissions Decision to Admit Reason: Admit from ER (General) Decision to Admit/Date: Feb 10, 2020 Time/Decision to Admit Time: 19:25 Departure-Patient Inst. Referrals: [facility] (PCP[facility]Family) Primary Care Physician Scripts No Active Prescriptions or Reported Meds ARLENE PARNELL MD Feb 10, 2020 18:47
--- NOTE | 2020-02-10 18:54 | NUR ---
Pt's necklace and other items placed in purse.
[2020-02-10 18:58] LABS: BILIRUBIN,URINE NEGATIVE (NEGATIVE); CLARITY,URINE CLEAR; COLOR,URINE YELLOW; GLUCOSE, URINE (UA) NEGATIVE (NEGATIVE); KETONES,URINE NEGATIVE (NEGATIVE); LEUKOCYTE ESTERASE ,URINE 2+ (NEGATIVE); NITRITE,URINE NEGATIVE (NEGATIVE); PH,URINE 7.5 (5-9); PROTEIN,URINE 1+ (NEGATIVE)
[2020-02-10] MEDS ORDERED: ACETAMINOPHEN 500 MG TAB (TYLENOL) PO ONE (19:00)
[2020-02-10] MEDS ORDERED: ONDANSETRON 4 MG/2 ML (SDV) Z0FRAN IVP ONE (19:00)
[2020-02-10 19:06] LABS: BACTERIA,URINE FEW /HPF; RBC,URINE 50-100 /HPF; WBC,URINE 25-50 /HPF
[2020-02-10 19:21] LABS: AMPHETAMINE SCREEN, URINE NEGATIVE (NEGATIVE); BARBITURATE SCREEN URINE NEGATIVE (NEGATIVE); BENZODIAZEPINES SCREEN URINE NEGATIVE (NEGATIVE); CANNABINOID SCREEN, URINE NEGATIVE (NEGATIVE); COCAINE SCREEN URINE NEGATIVE (NEGATIVE); METHADONE STAT NEGATIVE (NEGATIVE); METHAMPHETAMINE SCREEN URINE S POSITIVE (NEGATIVE); OPIATE SCREEN URINE NEGATIVE (NEGATIVE); OXYCODONE STAT NEGATIVE (NEGATIVE); PROPOXYPHENE STAT NEGATIVE (NEGATIVE); TRICYCLIC ANTIDEPRESSANTS SCRE NEGATIVE (NEGATIVE)
[2020-02-10 19:26] LABS: BASOPHILS % (AUTO) 0 % (0-10); EOSINOPHILS # (AUTO) 0.1 10^3/uL (0.0-0.3); EOSINOPHILS % (AUTO) 1 % (0-10); HEMATOCRIT 41 % (35-52); HEMOGLOBIN 13.2 G/DL (11.5-16.0); LYMPHOCYTES # (AUTO) 2.2 X 10^3 (1.0-4.0); LYMPHOCYTES % (AUTO) 15 % (12-44); MEAN CORPUSCULAR HEMOGLOBIN 28 PG (25-34); MEAN CORPUSCULAR HGB CONC 32 G/DL (32-36); MEAN CORPUSCULAR VOLUME 86 FL (80-99); MONOCYTES # (AUTO) 1.1 X 10^3 (0.0-1.0); MONOCYTES % (AUTO) 7 % (0-12); NEUTROPHILS # (AUTO) 11.8 X 10^3 (1.8-7.8); NEUTROPHILS % (AUTO) 77 % (42-75); PLATELET COUNT 225 10^3/uL (130-400); RED CELL DISTRIBUTION WIDTH 13.3 % (10.0-14.5); WHITE BLOOD COUNT 15.3 10^3/uL (4.3-11.0)
[2020-02-10] MEDS ORDERED: PIPERACILLIN SODIUM/TAZOBACTAM 4.5 GM in NS (IVPB) 100 ML IV ONE (19:30)
[2020-02-10 19:42] LABS: ALANINE AMINOTRANSFERASE 16 U/L (0-55); ALBUMIN 3.8 GM/DL (3.2-4.5); ALKALINE PHOSPHATASE 81 U/L (40-136); BILIRUBIN,TOTAL 0.4 MG/DL (0.1-1.0); BUN/CREATININE RATIO 9; CALCIUM 9.3 MG/DL (8.5-10.1); CARBON DIOXIDE 24 MMOL/L (21-32); CREATININE SERUM 0.78 MG/DL (0.60-1.30); GFR ESTIMATED > 60; GLUCOSE 93 MG/DL (70-105); TOTAL PROTEIN 6.9 GM/DL (6.4-8.2)
[2020-02-10 19:48] LABS: LYMPHOCYTES % (MANUAL) 16 %; MONOCYTES % (MANUAL) 8 %; NEUTROPHILS % (MANUAL) 76 %; RBC MORPH NORMAL
[2020-02-10 19:54] LABS: CHLORIDE 104 MMOL/L (98-107); SODIUM 137 MMOL/L (135-145)
--- NOTE | 2020-02-10 19:58 | NUR ---
Called lab for covid swab. Camilla in lab sent a green top tube. Called lab back to confirm if tube had changed. Was told by Camilla in lab that covid swab is now green or red.
--- NOTE | 2020-02-10 20:10 | Diagnostic Imaging Report ---
INDICATION: Cough. Comparison is made to the prior study from 12/09/2013. FINDINGS: Lungs demonstrate no focal infiltrate or consolidation. There is no effusion. There is no pneumothorax. Heart size and mediastinal contours are appropriate and pulmonary vascularity appears normal. No acute or suspicious osseous abnormality is demonstrated. IMPRESSION: 1. No radiographic evidence of an acute cardiopulmonary process. Dictated by: Dictated on workstation # [id number]
--- NOTE | 2020-02-10 21:00 | NUR ---
LUÍS VICTORIA admitted to room 433-1, with an admitting diagnosis of PNEUMONIA, UTI, SEPSIS, POSSIBLE COVID-19, on 02/10/20 from ED via WHEELCHAIR, accompanied by ED STAFF. LUÍS VICTORIA introduced to surroundings, call light, bed controls, phone, TV, temperature control, lights, meal times, smoking policy, visitor policy, side rail policy, bathrooms and showers. Patient Rights given to patient in the handbook. LUÍS VICTORIA verbalizes understanding that [facility] is not responsible for the loss or damage to any personal effects or valuables that are kept in the patients posession during their hospitalization. LUÍS VICTORIA verbalizes understanding of Interdisciplinary Patient Education. Patient and/or family were informed about the Rapid Response Team and its purpose.
[2020-02-10 21:03] VITALS: BP 117/59
[2020-02-10] MEDS ORDERED: NS IV 1000 ML 1,000 ML ONE (21:10)
[2020-02-10] MEDS ORDERED: ENOXAPARIN 40 MG/0.4 ML (LOVENOX) SYR ONE (21:13)
--- NOTE | 2020-02-10 21:30 | NUR ---
UPON OBSERVING IV SITE IN PT RIGHT SHOULDER, IT IS NOTED THAT IV HAS BECOME ACCIDENTALLY DC'D. CATHETER INTACT.
--- NOTE | 2020-02-10 21:30 | NUR ---
DURING ADMISSION PT ADMITS TO USING METH 2 DAYS AGO. PT STATES THAT SHE IS AN IV DRUG USER, BUT TYPICALLY ONLY SHOOTS UP IN HER LEGS. SHE IS ALSO NOTED TO HAVE GENERALIZED ABRASIONS OVER HER ARMS AND FACE. PT STATES, "I AM BAD AT PICKING WHEN I'M HIGH."
[2020-02-10] MEDS ORDERED: HYDROcodone/APAP 5 MG/325 MG (LORTAB) TAB PO PRN (21:45)
[2020-02-10] MEDS ORDERED: LOPERAMIDE 2 MG (IMODIUM) TABLET PO PRN (21:45)
[2020-02-10] MEDS ORDERED: DOCUSATE SODIUM 100 MG (COLACE) CAP PO PRN (21:45)
[2020-02-10] MEDS ORDERED: CALCIUM CARBONATE 500 MG (TUMS) TAB.CHEW PO PRN (21:45)
[2020-02-10] MEDS ORDERED: fentaNYL INJECTION 100 MCG/2 ML AMP IVP PRN (21:45)
[2020-02-10] MEDS ORDERED: diphenhydrAMINE 25 MG TAB (BENADRYL) PO PRN (21:45)
[2020-02-10] MEDS ORDERED: ACETAMINOPHEN 500 MG TAB (TYLENOL) PO PRN (21:45)
[2020-02-10] MEDS ORDERED: ALPRAZolam 0.25 MG (XANAX) TAB PO PRN (21:45)
[2020-02-10] MEDS ORDERED: MELATONIN 3 MG TABLET PO PRN (21:45)
[2020-02-10] MEDS ORDERED: ONDANSETRON 4 MG/2 ML (SDV) Z0FRAN IV PRN (21:45)
[2020-02-10] MEDS ORDERED: NS (IVPB) 250 ML ONE (21:51)
[2020-02-10] MEDS ORDERED: VANCOMYCIN 1000 MG/VIAL ONE (21:51)
[2020-02-10 22:15] VITALS: BP 115/63
--- NOTE | 2020-02-10 22:17 | NUR ---
AFTER [address] NEW IV THIS RN CONTACTS DR. MILLER. PAUL GIVES ORDER TO CONSULT DOREEN FOR CENTRAL LINE PLACEMENT.
--- NOTE | 2020-02-10 22:24 | NUR ---
DOREEN CONTACTED FOR CENTRAL LINE PLACEMENT. DOREEN AGREES TO CENTRAL LINE CONSULT. STATES HE WILL BE TO HOSPITAL IN ABOUT 45 MINUTES.
--- NOTE | 2020-02-10 22:50 | NUR ---
THIS RN AND HYUN JACKSON RN RECEIVE VERBAL CONSENT FROM PT FOR CENTRAL LINE PLACEMENT.
[2020-02-10 23:19] VITALS: BP 122/57
--- NOTE | 2020-02-10 23:30 | NUR ---
DOREEN ON FLOOR.
[2020-02-11] VITALS (9 sets, daily range): BP systolic 122–155; BP diastolic 65–88
--- NOTE | 2020-02-11 | NUR ---
DOREEN AND THIS RN AT BEDSIDE FOR CENTRAL LINE PLACEMENT. TIMEOUT COMPLETED AT THIS TIME. DOREEN EXPLAINS IN DETAIL POSSIBLE COMPLICATIONS WELL THE PROCEDURE HE WILL FOLLOW TO PLACE THE CENTRAL LINE. PT VERBALIZES UNDERSTANDING.
[2020-02-11] MEDS: VANCOMYCIN INJECTION 1,000 MG in NS (IVPB) 250 ML IV SCH ×2 (00:23→02:24)
--- NOTE | 2020-02-11 00:23 | Consultation - Surgery ---
History of Present Illness History of Present Illness Patient Consulted On(no/time) 02/11/20 00:17 Date Seen by Provider: Feb 10, 2020 Time Seen by Provider: 11:51 History of Present Illness Surgery asked to consult regarding Venous insufficiency. HPI per ED: Pt arrives via [facility] ems cart (wearing simple mask) with c/o SOA, cough, et fever. Pt reports onset of symptoms to began on 01/11/20. Pt reports productive cough stating, "sometimes I spit up yellow stuff." Pt unaware if she has been exposed to anyone with COVID19. Pt reports hx asthma. PPE donned by ED staff. This 29-year-old young lady presents to the emergency room with flulike symptoms including fever, sore throat, productive cough, and nausea. She has been ill for 2 days. She presents to the hospital via EMS because she did not feel she could manage well at home anymore. She does have history of asthma and COPD and continues to smoke. She states this feels different than her usual upper respiratory infection because she is actually not wheezing like she usually does. She is flushed and appears ill. She reports her cough this evening has been tinged with blood. She denies any recent travel or known exposure to patients with coronavirus or under investigation for pena virus. When I saw pt she was resting comfortably in bed, falling asleep. Multiple attempts were made by nursing to gain IV access, unfortunately all were unsuccessful. Pt did have IV placed by EMS (also after many attempts) however it fell out between ER and floor. Allergies and Home Medications Allergies Coded Allergies: No Known Drug Allergies (Unverified , 12/09/13) pt denies allergies Home Medications No Active Prescriptions or Reported Meds Patient Home Medication List Home Medication List Reviewed: Yes Past Kwavski-Yifnkz-Gsmfdh Hx Patient Social History Alcohol Use: Denies Use Recreational Drug Use: Yes Drug of Choice: Methamphetamines Smoking Status: Current Everyday Smoker Type Used: Cigarettes 2nd Hand Smoke Exposure: Yes Recent Foreign Travel: No Contact w/Someone Who Travel: Yes Recent Infectious Disease Expo: Yes Recent Hopitalizations: No Immunizations Up To Date Tetanus Booster (TDap): Unknown Date of Pneumonia Vaccine: Aug 17, 2011 Date of Influenza Vaccine: Sep 17, 2014 Seasonal Allergies Seasonal Allergies: No Surgeries History of Surgeries: Yes (EGD 2006) Respiratory History of Respiratory Disorde: Yes Respiratory Disorders: Asthma, Sleep Apnea, COPD Cardiovascular History of Cardiac Disorders: Yes ("HEART BEATS VERY FAST AND THEN PAUSES") Cardiac Disorders: Chronic Edema/Swelling, Hypertension, Irregular Heartbeat Neurological History of Neurological Disord: Yes (reports history of seizures) Reproductive System : No Hx Reproductive Disorders: No Sexually Transmitted Disease: No HIV/AIDS: No Female Reproductive Disorders: Denies Gastrointestinal History of Gastrointestinal Di: No Gastrointestinal Disorders: Ulcer Musculoskeletal History of Musculoskeletal Dis: Yes Musculoskeletal Disorders: Arthritis, Chronic Back Pain, Spasms Endocrine History of Endocrine Disorders: Yes (unsure of thyroid issue) Endocrine Disorders: Hyperthyroidism Cancer History of Cancer: No Psychosocial History of Psychiatric Problem: Yes (Cutting behavior) Behavioral Health Disorders: ADD/ADHD, Suicide Attempts, Depression Integumentary History of Skin or Integumenta: No Blood Transfusions History of Blood Disorders: No Family Medical History Significant Family History: Hypertension (parents) Review of Systems-General Constitutional: fever, malaise EENTM: No blurred vision, No double vision, No mouth pain, No mouth swelling, No epistaxis Respiratory: cough, dyspnea on exertion; No hemoptysis; phlegm, short of breath Cardiovascular: No chest pain, No palpitations Gastrointestinal: No abdominal pain, No jaundice, No nausea, No vomiting Genitourinary: No dysuria, No frequency, No hematuria Musculoskeletal: joint pain, joint swelling, muscle pain, muscle stiffness Skin: No change in color, No change in hair/nails Psychiatric/Neurological: Anxiety, Depressed; Denies Seizure, Denies Tremors Other pt denies any hx of abnormal bleeding or bruising Physical Exam-General Problems Physical Exam Vital Signs Vital Signs - First Documented 02/10/20 18:10 Temp 38.6 Pulse 104 Resp 20 B/P (MAP) 131/68 (89) Pulse Ox 97 O2 Delivery Room Air Capillary Refill : Less Than 3 Seconds General Appearance: no apparent distress, obese Eyes: Bilateral Eye PERRL, Bilateral Eye EOMI HEENT: pharynx normal; No scleral icterus (R), No scleral icterus (L) Neck: supple, normal inspection Respiratory: chest non-tender, no respiratory distress, no accessory muscle use, decreased breath sounds, wheezing Cardiovascular: no murmur, tachycardia Gastrointestinal: normal bowel sounds, non tender, soft, no organomegaly, no pulsatile mass Back: no CVA tenderness Extremities: no pedal edema, no calf tenderness, normal capillary refill Neurologic/Psychiatric: director process II-XII nml as tested, alert, oriented x 3 Skin: normal color, warm/dry Lymphatic: no adenopathy (neck, axilla or groin) Data Review Labs Laboratory Tests 02/10/20 18:30: Urine Color YELLOW, Urine Clarity CLEAR, Urine pH 7.5, Urine Specific [place] 1.015L, Urine Protein 1+H, Urine Glucose (UA) NEGATIVE, Urine Ketones NEGATIVE, Urine Nitrite NEGATIVE, Urine Bilirubin NEGATIVE, Urine Urobilinogen 0.2, Urine Leukocyte Esterase 2+H, Urine RBC (Auto) 3+H, Urine RBC 50-100H, Urine WBC 25- 50H, Urine Squamous Epithelial Cells 5-10, Urine Crystals NONE, Urine Bacteria FEWH, Urine Casts NONE, Urine Mucus NEGATIVE, Urine Culture Indicated YES, Urine Opiates Screen NEGATIVE, Urine Oxycodone Screen NEGATIVE, Urine Methadone Screen NEGATIVE, Urine Propoxyphene Screen NEGATIVE, Urine Barbiturates Screen NEGATIVE, Ur Tricyclic Antidepressants Screen NEGATIVE, Urine Phencyclidine Screen NEGATIVE, Urine Amphetamines Screen NEGATIVE, Urine Methamphetamines Screen POSITIVEH, Urine Benzodiazepines Screen NEGATIVE, Urine Cocaine Screen NEGATIVE, Urine Cannabinoids Screen NEGATIVE 02/10/20 18:40: Group A Streptococcus Screen NEGATIVE 02/10/20 19:10: White Blood Count 15.3H, Red Blood Count 4.80, Hemoglobin 13.2, Hematocrit 41, Mean Corpuscular Volume 86, Mean Corpuscular Hemoglobin 28, Mean Corpuscular Hemoglobin Concent 32, Red Cell Distribution Width 13.3, Platelet Count 225, Mean Platelet Volume 11.0H, Neutrophils (%) (Auto) 77H, Lymphocytes (%) (Auto) 15, Monocytes (%) (Auto) 7, Eosinophils (%) (Auto) 1, Basophils (%) (Auto) 0, Neutrophils # (Auto) 11.8H, Lymphocytes # (Auto) 2.2, Monocytes # (Auto) 1.1H, Eosinophils # (Auto) 0.1, Basophils # (Auto) 0.0, Neutrophils % (Manual) 76, Lymphocytes % (Manual) 16, Monocytes % (Manual) 8, Blood Morphology Comment NORMAL, Sodium Level 137, Potassium Level 4.0, Chloride Level 104, Carbon Dioxide Level 24, Anion Gap 9, Blood Urea Nitrogen 7, Creatinine 0.78, Estimat Glomerular Filtration Rate > 60, BUN/Creatinine Ratio 9, Glucose Level 93, Lactic Acid Level 1.16, Calcium Level 9.3, Corrected Calcium 9.5, Total Bilirubin 0.4, Aspartate Amino Transf (AST/SGOT) 12, Alanine Aminotransferase (ALT/SGPT) 16, Alkaline Phosphatase 81, C-Reactive Protein High Sensitivity 5.26H, Total Protein 6.9, Albumin 3.8, Procalcitonin 0.06, Serum Test, Qualitative NEGATIVE Microbiology 02/10/20 Influenza Types A,B Antigen (NICKI) - Final, Complete Radiology CHEST 1 VIEW, AP/PA ONLY INDICATION: Cough. Comparison is made to the prior study from 12/09/2013. FINDINGS: Lungs demonstrate no focal infiltrate or consolidation. There is no effusion. There is no pneumothorax. Heart size and mediastinal contours are appropriate and pulmonary vascularity appears normal. No acute or suspicious osseous abnormality is demonstrated. IMPRESSION: 1. No radiographic evidence of an acute cardiopulmonary process. Dictated by: Dictated on workstation # [id number] Dict: 02/10/202002 Trans: 02/10/202033 [facility] [id number] Interpreted by: HOLLIS CHAVEZ MD Electronically signed by: HOLLIS CHAVEZ MD 02/10/202033 Assessment/Plan Assessment/Plan Assessment/Plan Venous Insufficiency Sepsis Acute on Chronic Respiratory Failure Hx of Methamphetamine abuse Pt is in COVID-19 precautions, has no IV access and needs a central line placed. Discussed the procedure with pt; risks and complications not limited to pain, bleeding, infection, scar, damage to major vessels and pneumothorax. Consent obtained. All questions answered to her satisfaction. Clinical Quality Measures DVT/VTE Risk/Contraindication: Risk Factor Score Per Nursin RFS Level Per Nursing on Admit: 4+=Very High ERIKA LOGAN DO Feb 11, 2020 00:23
[2020-02-11] MEDS: NS IV 1000 ML 1,000 ML IV SCH ×5 (00:24→23:43)
--- NOTE | 2020-02-11 00:30 | NUR ---
TRIPLE LUMEN LINE SUCCESSFULLY PLACED IN RIGHT IJ. PT TOLERATED WELL. STERILE DRESSING APPLIED.
--- NOTE | 2020-02-11 00:35 | Progress Note-Post Operative ---
Post-Operative Progess Note Surgeon (s)/District Administrative Assistant (s) Surgeon ERIKA LOGAN DO District Administrative Assistant: none Pre-Operative Diagnosis Venous Insufficiency, Sepsis Post-Operative Diagnosis same Procedure & Operative Findings Date of Procedure 02/11/20 Procedure Performed/Findings PROCEDURE: [Right] internal jugular triple lumen catheter central line placement using ultrasound guidance. COMPLICATIONS: None. INDICATIONS: The patient is a 29 year old female [with Venous insufficiency and sepsis]. Patient understands the risks and benefits of central line placement and wished to proceed with the procedure. Consent was signed on the chart. PROCEDURE: The patient was in her hospital bed, was prepped and draped in the sterile fashion. A surgical pause was performed. Ultrasound was used to locate the internal jugular vein. Once located anesthetic was infiltrated above it. 18 Gauge needle was then advanced with negative inspiration and watched it enter vein with the US, once the right internal vein was accessed. Dark nonpulsatile blood was withdrawn. The wire was inserted. Checked with US and could see the wire in the IJ. The needle was removed. The dilator was then advanced over the wire and then removed and catheter was placed over the guidewire using the Seldinger technique and it went in easily. Locking ports were placed and then easily aspirated and got a good flash of blood in all three port and then flushed with sterile saline. The area was then washed and dried. Nurse placed a sterile dressing. The patient tolerated the procedure well without complication. Anesthesia Type Local Lidocaine Estimated Blood Loss Estimated blood loss (mL): less than 2ml Specimens/Packing Specimens Removed none ERIKA LOGAN DO Feb 11, 2020 00:35
[2020-02-11] MEDS ORDERED: NS (IVPB) 250 ML ONE (01:25)
[2020-02-11] MEDS ORDERED: VANCOMYCIN 1000 MG/VIAL ONE (01:25)
[2020-02-11] MEDS ORDERED: PIPERACILLIN/TAZO 4.5 GM VIAL (ZOSYN) IV ONE (01:26)
[2020-02-11] MEDS ORDERED: NS (IVPB) 100 ML ONE (01:26)
[2020-02-11] MEDS ORDERED: RT-ALBUTEROL HFA (PROAIR HFA) 8.5 GM IH PRN (01:30)
[2020-02-11] MEDS: PIPERACILLIN/TAZO 4.5 GM/NS 100 ML IV SCH ×4 (02:24→09:19)
[2020-02-11 05:32] LABS: BASOPHILS % (AUTO) 0 % (0-10); EOSINOPHILS # (AUTO) 0.1 10^3/uL (0.0-0.3); EOSINOPHILS % (AUTO) 1 % (0-10); HEMATOCRIT 35 % (35-52); HEMOGLOBIN 11.3 G/DL (11.5-16.0); LYMPHOCYTES # (AUTO) 2.3 X 10^3 (1.0-4.0); LYMPHOCYTES % (AUTO) 20 % (12-44); MEAN CORPUSCULAR HEMOGLOBIN 28 PG (25-34); MEAN CORPUSCULAR HGB CONC 32 G/DL (32-36); MEAN CORPUSCULAR VOLUME 87 FL (80-99); MEAN PLATELET VOLUME 10.5 FL (7.4-10.4); MONOCYTES # (AUTO) 1.3 X 10^3 (0.0-1.0); MONOCYTES % (AUTO) 11 % (0-12); NEUTROPHILS # (AUTO) 7.9 X 10^3 (1.8-7.8); NEUTROPHILS % (AUTO) 68 % (42-75); PLATELET COUNT 204 10^3/uL (130-400); RED CELL DISTRIBUTION WIDTH 13.2 % (10.0-14.5); WHITE BLOOD COUNT 11.7 10^3/uL (4.3-11.0)
[2020-02-11 05:48] LABS: INR 1.1 (0.8-1.4); PROTHROMBIN TIME PATIENT 15.1 SEC (12.2-14.7)
[2020-02-11 06:10] LABS: ALANINE AMINOTRANSFERASE 11 U/L (0-55); ALBUMIN 3.1 GM/DL (3.2-4.5); ALKALINE PHOSPHATASE 67 U/L (40-136); BILIRUBIN,TOTAL 0.3 MG/DL (0.1-1.0); BUN/CREATININE RATIO 8; CALCIUM 8.2 MG/DL (8.5-10.1); CARBON DIOXIDE 24 MMOL/L (21-32); CHLORIDE 106 MMOL/L (98-107); GFR ESTIMATED > 60; GLUCOSE 100 MG/DL (70-105); POTASSIUM 3.9 MMOL/L (3.6-5.0); SODIUM 139 MMOL/L (135-145); TOTAL PROTEIN 5.7 GM/DL (6.4-8.2)
[2020-02-11] MEDS ORDERED: VANCOMYCIN 1250 MG/NS 250 ML IVPB IV SCH ×2 (08:06)
--- NOTE | 2020-02-11 08:10 | NUR ---
PTD VANCOMYCIN LABS: SCR 0.80 A/P: PATIENT RECEIVED VANCOMYCIN 2 GRAMS AT 02/11/20 @ 4299-1030, START VANCOMYCIN 1,250MG IV Q 8HR NEXT DOSE NOW, WILL CHECK A TROUGH LEVEL ON 02/11 @ 0500.
[2020-02-11] MEDS: SENNA W/DOCUSATE (SENOKOT S) TABLET PO SCH ×2 (09:19→20:15)
--- NOTE | 2020-02-11 10:34 | Progress Note - Surgery ---
Subjective Time Seen by a Provider: 09:23 Subjective/Events-last exam Pt seen, main complaint is of neck pain at site of catheter insertion. Nurse states central line is working fine. Review of Systems Pulmonary: No Dyspnea, No Cough Cardiovascular: No: Chest Pain, Palpitations Gastrointestinal: No: Nausea, Vomiting, Abdominal Pain Focused Exam Lactate Level 02/10/20 19:10: Lactic Acid Level 1.16 Objective Exam Vital Signs Date Time Temp Pulse Resp B/P (MAP) Pulse Ox O2 Delivery O2 Flow Rate FiO2 02/11/20 09:22 36.8 88 20 137/88 (104) 94 Room Air 02/11/20 08:00 94 Room Air 02/11/20 07:00 93 02/11/20 02:35 100 02/11/20 02:22 37.3 96 22 128/74 (92) 97 Room Air 02/11/20 01:17 37.2 102 97 21 02/11/20 00:42 37.2 102 22 122/65 (84) 97 Room Air 02/11/20 00:42 Room Air 02/10/20 23:19 37.1 100 22 122/57 (78) 97 Room Air 02/10/20 22:15 37.6 96 22 115/63 (80) 97 Room Air 02/10/20 21:03 37.7 87 20 117/59 97 Room Air 02/10/20 20:44 97 19 134/78 98 Room Air 02/10/20 18:10 38.6 104 20 131/68 (89) 97 Room Air I & O 02/11/20 07:00 Intake Total 1600 ml Balance 1600 ml Capillary Refill : Less Than 3 Seconds General Appearance: WD/WN, Mild Distress HEENT: PERRL/EOMI, Other (tympanic membranes retracted. Tonsillar enlargement without exudate or significant erythema) Neck: No Thyromegaly; Other (central line site looks good, no erythema) Respiratory: Lungs Clear, Normal Breath Sounds, No Accessory Muscle Use, No Respiratory Distress Cardiovascular: Regular Rate, Rhythm, No Murmur, Other (mild lower extremity edema) Extremity: Swelling (mild lower extremity edema) Neurologic/Psychiatric: Alert, Oriented x3, Other (mildly anxious) Results Lab Laboratory Tests 02/10/20 18:30: Urine Color YELLOW, Urine Clarity CLEAR, Urine pH 7.5, Urine Specific [place] 1.015L, Urine Protein 1+H, Urine Glucose (UA) NEGATIVE, Urine Ketones NEGATIVE, Urine Nitrite NEGATIVE, Urine Bilirubin NEGATIVE, Urine Urobilinogen 0.2, Urine Leukocyte Esterase 2+H, Urine RBC (Auto) 3+H, Urine RBC 50-100H, Urine WBC 25- 50H, Urine Squamous Epithelial Cells 5-10, Urine Crystals NONE, Urine Bacteria FEWH, Urine Casts NONE, Urine Mucus NEGATIVE, Urine Culture Indicated YES, Urine Opiates Screen NEGATIVE, Urine Oxycodone Screen NEGATIVE, Urine Methadone Screen NEGATIVE, Urine Propoxyphene Screen NEGATIVE, Urine Barbiturates Screen NEGATIVE, Ur Tricyclic Antidepressants Screen NEGATIVE, Urine Phencyclidine Screen NEGATIVE, Urine Amphetamines Screen NEGATIVE, Urine Methamphetamines Screen POSITIVEH, Urine Benzodiazepines Screen NEGATIVE, Urine Cocaine Screen NEGATIVE, Urine Cannabinoids Screen NEGATIVE 02/10/20 18:40: Group A Streptococcus Screen NEGATIVE 02/10/20 19:10: White Blood Count 15.3H, Red Blood Count 4.80, Hemoglobin 13.2, Hematocrit 41, Mean Corpuscular Volume 86, Mean Corpuscular Hemoglobin 28, Mean Corpuscular Hemoglobin Concent 32, Red Cell Distribution Width 13.3, Platelet Count 225, Mean Platelet Volume 11.0H, Neutrophils (%) (Auto) 77H, Lymphocytes (%) (Auto) 15, Monocytes (%) (Auto) 7, Eosinophils (%) (Auto) 1, Basophils (%) (Auto) 0, Neutrophils # (Auto) 11.8H, Lymphocytes # (Auto) 2.2, Monocytes # (Auto) 1.1H, Eosinophils # (Auto) 0.1, Basophils # (Auto) 0.0, Neutrophils % (Manual) 76, Lymphocytes % (Manual) 16, Monocytes % (Manual) 8, Blood Morphology Comment NORMAL, Sodium Level 137, Potassium Level 4.0, Chloride Level 104, Carbon Dioxide Level 24, Anion Gap 9, Blood Urea Nitrogen 7, Creatinine 0.78, Estimat Glomerular Filtration Rate > 60, BUN/Creatinine Ratio 9, Glucose Level 93, Lactic Acid Level 1.16, Calcium Level 9.3, Corrected Calcium 9.5, Total Bilirubin 0.4, Aspartate Amino Transf (AST/SGOT) 12, Alanine Aminotransferase (ALT/SGPT) 16, Alkaline Phosphatase 81, C-Reactive Protein High Sensitivity 5.26H, Total Protein 6.9, Albumin 3.8, Procalcitonin 0.06, Serum Test, Qualitative NEGATIVE 02/10/20 19:53: 02/11/20 05:00: White Blood Count 11.7H, Red Blood Count 4.02L, Hemoglobin 11.3L, Hematocrit 35, Mean Corpuscular Volume 87, Mean Corpuscular Hemoglobin 28, Mean Corpuscular Hemoglobin Concent 32, Red Cell Distribution Width 13.2, Platelet Count 204, Mean Platelet Volume 10.5H, Neutrophils (%) (Auto) 68, Lymphocytes (%) (Auto) 20, Monocytes (%) (Auto) 11, Eosinophils (%) (Auto) 1, Basophils (%) (Auto) 0, Neutrophils # (Auto) 7.9H, Lymphocytes # (Auto) 2.3, Monocytes # (Auto) 1.3H, Eosinophils # (Auto) 0.1, Basophils # (Auto) 0.0, Sodium Level 139, Potassium Level 3.9, Chloride Level 106, Carbon Dioxide Level 24, Anion Gap 9, Blood Urea Nitrogen 6L, Creatinine 0.80, Estimat Glomerular Filtration Rate > 60, BUN/Creatinine Ratio 8, Glucose Level 100, Calcium Level 8.2L, Corrected Calcium 8.9, Total Bilirubin 0.3, Aspartate Amino Transf (AST/SGOT) 10, Alanine Aminotransferase (ALT/SGPT) 11, Alkaline Phosphatase 67, Total Protein 5.7L, Albumin 3.1L Microbiology 02/10/20 Throat Culture - Preliminary, Resulted No Beta Strep isolated Assessment/Plan Assessment/Plan Assessment/Plan Venous Insufficiency Sepsis Acute on Chronic Respiratory Failure Hx of Methamphetamine abuse Central line looks good, continue to use. I will sign off and can reconsult as needed. Clinical Quality Measures DVT/VTE Risk/Contraindication: Risk Factor Score Per Nursin RFS Level Per Nursing on Admit: 4+=Very High ERIKA LOGAN DO Feb 11, 2020 10:34
--- NOTE | 2020-02-11 12:17 | History & Physical-Hospitalist ---
History of Present Illness HPI/Chief Complaint CC: Cough with fever in IV drug user HPI: This is a 29yoWF IV drug user and meth user who presents to the ER with cough and fever and shortness of breath and productive sputum streaked with blood meeting criteria for COVID-19 swab so she remains in isolation. Patient reports she is getting OOB and going to bathroom and is able to eat. She reports the IV hurts that Dr Nichole had to place late last night in the right IJ. Patient reports the cough is improved but still causes chest pain. Checked meds and labs. Conferred with RN. Source: patient Date Seen 02/11/20 Time Seen by a Provider: 12:30 Attending Physician Sarita Paul DO [facility] Referring Physician Date of Admission Feb 10, 2020 at 20:20 Home Medications & Allergies Home Medications Reviewed patient Home Medication Reconciliation performed by pharmacy medication reconciliations vehicle modification technician and/or nursing. Patients Allergies have been reviewed. Allergies Allergies Coded Allergies No Known Drug Allergies (Unverified12/09/13) pt denies allergies Past Pldnjet-Ogiszy-Ckvjrg Hx Past Med/Social Hx: Reviewed Nursing Past Med/Soc Hx, Reviewed and Corrections made Patient Social History Marrital Status: single Employed/Student: unemployed Alcohol Use: Denies Use Recreational Drug Use: Yes Drug of Choice: Methamphetamines Smoking Status: Current Everyday Smoker Type Used: Cigarettes 2nd Hand Smoke Exposure: Yes Recent Foreign Travel: No Contact w/other who traveled: Yes Recent Hopitalizations: No Recent Infectious Disease Expo: Yes Immunizations Up To Date Tetanus Booster (TDap): Unknown Date of Pneumonia Vaccine: Aug 17, 2011 Date of Influenza Vaccine: Sep 17, 2014 Seasonal Allergies Seasonal Allergies: No Past Medical History Currently Using CPAP: No Currently Using BIPAP: No Cardiac: Chronic Edema/Swelling, Hypertension, Irregular Heartbeat : No Reproductive: No Sexually Transmitted Disease: No HIV/AIDS: No Female Reproductive Disorders: Denies Gastrointestinal: Ulcer Musculoskeletal: Arthritis, Chronic Back Pain, Spasms Endocrine: Hyperthyroidism Psychosocial: ADD/ADHD, Suicide Attempts, Depression History of Blood Disorders: No Family History Hypertension (parents) Review of Systems Constitutional: see HPI, fever, weakness Respiratory: cough, dyspnea on exertion Cardiovascular: chest pain Physical Exam Physical Exam Vital Signs Vital Signs - First Documented 02/10/20 02/11/20 18:10 01:17 Temp 38.6 Pulse 104 Resp 20 B/P (MAP) 131/68 (89) Pulse Ox 97 O2 Delivery Room Air FiO2 21 Capillary Refill : Less Than 3 Seconds Height, Weight, BMI Height: 5'5.00" Weight: 350lbs. 0.0oz. [id number]; 61.74 BMI Method:Stated General Appearance: No Apparent Distress, WD/WN, Chronically ill Eyes: Right Eye Normal Inspection, Right Eye PERRL HEENT: PERRL/EOMI, Normal ENT Inspection, Pharynx Normal, Moist Mucous Membranes Neck: Full Range of Motion, Normal Inspection, Non Tender Respiratory: Chest Non Tender, Normal Breath Sounds, No Accessory Muscle Use, No Respiratory Distress, Decreased Breath Sounds Cardiovascular: Regular Rate, Rhythm, No Edema, No Gallop, No JVD, No Murmur, N ormal Peripheral Pulses Gastrointestinal: Normal Bowel Sounds, No Organomegaly, No Pulsatile Mass, Non Tender, Soft Back: Normal Inspection, No CVA Tenderness, No Vertebral Tenderness Extremity: Normal Capillary Refill, Normal Inspection, Normal Range of Motion, Non Tender, No Calf Tenderness, No Pedal Edema Neurologic/Psychiatric: Alert, Oriented x3, No Motor/Sensory Deficits, Normal Mood/Affect Skin: Normal Color, Warm/Dry Lymphatic: No Adenopathy Results Results/Procedures Labs Laboratory Tests 02/10/20 19:10 02/11/20 05:00 Patient resulted labs reviewed. Assessment/Plan Admission Diagnosis Assessment: Sepsis Fever Cough Shortness of breath IV drug user Meth use Smoker UTI Chest pain Plan: IV abx for UTI Procalcitonin normal so narrow abx and DC Vanc and Zosyn Consult Cardiology to evaluate for endocarditis which I doubt but IV drug user is at high risk COVID swab pending Admission Status: Inpatient Order (span 2 midnights) Reason for Inpatient Admission: sepsis Diagnosis/Problems Diagnosis/Problems (1) Chest pain (2) Methamphetamine abuse (3) Smoker (4) IV drug abuse (5) Sepsis Status: Acute Qualifiers: Sepsis type: sepsis due to unspecified organism Sepsis acute organ dysfunction status: without acute organ dysfunction Qualified Codes: A41.9 - Sepsis, unspecified organism (6) Flu-like symptoms Status: Acute (7) Hemoptysis Status: Acute (8) IV drug user Status: Acute (9) Urinary tract infection Status: Acute Qualifiers: Urinary tract infection type: site unspecified Hematuria presence: without hematuria Qualified Codes: N39.0 - Urinary tract infection, site not specified Clinical Quality Measures DVT/VTE Risk/Contraindication: Risk Factor Score Per Nursin RFS Level Per Nursing on Admit: 4+=Very High SARITA PAUL DO Feb 11, 2020 12:17
[2020-02-11] MEDS: ENOXAPARIN 60 MG/0.6 ML (LOVENOX) SYR SC SCH ×2 (12:57→20:15)
--- NOTE | 2020-02-11 15:42 | NUR ---
CALLED THE PT TO COMPLETE THE MED REC PT SAYS SHE DOES NOT TAKE ANY PRESCRIPTION OR OTC MEDICATIONS I DID UPDATE HER PREFERRED PHARM
[2020-02-11] MEDS: RT-ALBUTEROL HFA (PROAIR HFA) 8.5 GM IH SCH (20:27)
[2020-02-11] MEDS ORDERED: cefTRIAXone FOR IV USE 2,000 MG in WATER (STERILE) FOR INJECTION 20 ML IV SCH (21:00)
[2020-02-11] MEDS ORDERED: ENOXAPARIN 40 MG/0.4 ML (LOVENOX) SYR SC SCH (21:00)
[2020-02-12 04:04] VITALS: BP 120/62
[2020-02-12 04:51] LABS: BASOPHILS % (AUTO) 0 % (0-10); EOSINOPHILS # (AUTO) 0.1 10^3/uL (0.0-0.3); EOSINOPHILS % (AUTO) 2 % (0-10); HEMATOCRIT 57 % (35-52); HEMOGLOBIN 18.1 G/DL (11.5-16.0); LYMPHOCYTES # (AUTO) 1.4 X 10^3 (1.0-4.0); LYMPHOCYTES % (AUTO) 29 % (12-44); MEAN CORPUSCULAR HEMOGLOBIN 27 PG (25-34); MEAN CORPUSCULAR HGB CONC 32 G/DL (32-36); MEAN CORPUSCULAR VOLUME 86 FL (80-99); MEAN PLATELET VOLUME 10.9 FL (7.4-10.4); MONOCYTES # (AUTO) 0.4 X 10^3 (0.0-1.0); MONOCYTES % (AUTO) 9 % (0-12); NEUTROPHILS # (AUTO) 2.9 X 10^3 (1.8-7.8); NEUTROPHILS % (AUTO) 60 % (42-75); PLATELET COUNT 93 10^3/uL (130-400); WHITE BLOOD COUNT 4.8 10^3/uL (4.3-11.0)
[2020-02-12] MEDS ORDERED: TROUGH ORDER-PHARMACY XX NR (05:00)
[2020-02-12 05:31] LABS: ALANINE AMINOTRANSFERASE 13 U/L (0-55); ALBUMIN 3.1 GM/DL (3.2-4.5); ALKALINE PHOSPHATASE 58 U/L (40-136); BILIRUBIN,TOTAL 0.2 MG/DL (0.1-1.0); BUN/CREATININE RATIO 7; CALCIUM 8.1 MG/DL (8.5-10.1); CARBON DIOXIDE 24 MMOL/L (21-32); CHLORIDE 107 MMOL/L (98-107); CREATININE SERUM 0.74 MG/DL (0.60-1.30); GFR ESTIMATED > 60; GLUCOSE 101 MG/DL (70-105); POTASSIUM 3.8 MMOL/L (3.6-5.0); SODIUM 139 MMOL/L (135-145); TOTAL PROTEIN 5.8 GM/DL (6.4-8.2)
[2020-02-12] MEDS: NS IV 1000 ML 1,000 ML IV SCH (06:30)
[2020-02-12] MEDS: ENOXAPARIN 60 MG/0.6 ML (LOVENOX) SYR SC SCH (08:13)
[2020-02-12] MEDS: SENNA W/DOCUSATE (SENOKOT S) TABLET PO SCH (08:13)
[2020-02-12] MEDS: RT-ALBUTEROL HFA (PROAIR HFA) 8.5 GM IH SCH (08:14)
[2020-02-12 08:19] VITALS: BP 117/85
[2020-02-12 08:21] LABS: BASOPHILS % (AUTO) 0 % (0-10); EOSINOPHILS # (AUTO) 0.2 10^3/uL (0.0-0.3); EOSINOPHILS % (AUTO) 2 % (0-10); HEMATOCRIT 35 % (35-52); HEMOGLOBIN 11.1 G/DL (11.5-16.0); LYMPHOCYTES # (AUTO) 2.3 X 10^3 (1.0-4.0); LYMPHOCYTES % (AUTO) 29 % (12-44); MEAN CORPUSCULAR HEMOGLOBIN 28 PG (25-34); MEAN CORPUSCULAR HGB CONC 32 G/DL (32-36); MEAN CORPUSCULAR VOLUME 87 FL (80-99); MEAN PLATELET VOLUME 10.5 FL (7.4-10.4); MONOCYTES # (AUTO) 0.9 X 10^3 (0.0-1.0); MONOCYTES % (AUTO) 11 % (0-12); NEUTROPHILS # (AUTO) 4.6 X 10^3 (1.8-7.8); NEUTROPHILS % (AUTO) 57 % (42-75); PLATELET COUNT 182 10^3/uL (130-400); RED CELL DISTRIBUTION WIDTH 12.6 % (10.0-14.5)
[2020-02-12] MEDS ORDERED: HYDR-83 PO (11:10)
[2020-02-12] MEDS ORDERED: CEFD300C3 PO (11:10)
--- NOTE | 2020-02-12 11:11 | Discharge Summary ---
Discharge Summary Hospital Course Was the Problem List Reviewed?: Yes Problems/Dx: (1) Chest pain (2) Methamphetamine abuse (3) Smoker (4) IV drug abuse (5) Sepsis Status: Acute Qualifiers: Qualified Codes: A41.9 - Sepsis, unspecified organism (6) Flu-like symptoms Status: Acute (7) Hemoptysis Status: Acute (8) IV drug user Status: Acute (9) Urinary tract infection Status: Acute Qualifiers: Qualified Codes: N39.0 - Urinary tract infection, site not specified Hospital Course Date of Admission: Feb 10, 2020 at 20:20 Admission Diagnosis : Family Physician/Provider: [place] Date of Discharge: 02/12/20 Discharge Diagnosis: fever, cough, UTI, IV drug use, Meth use, poor IV access, morbid obesity Hospital Course: Short course after admitted for sepsis and UTI and suspicion for COVID-19 placed on broad spectrum abx. Central line required due to poor IV access placed by Dr Nichole. COVID-19 swab was negative and Cardiology was consulted for chest pain without evidence of any dysfunction. Patient was ready for DC and labs returned to normal and she was DC in improved condition. Labs and Pending Lab Test: Laboratory Tests 02/11/20 14:05: Troponin I < 0.028 02/12/20 04:00: White Blood Count 4.8, Red Blood Count 6.61H, Hemoglobin 18.1#H, Hematocrit 57H, Mean Corpuscular Volume 86, Mean Corpuscular Hemoglobin 27, Mean Corpuscular Hemoglobin Concent 32, Red Cell Distribution Width 14.0, Platelet Count 93L, Mean Platelet Volume 10.9H, Neutrophils (%) (Auto) 60, Lymphocytes (%) (Auto) 29, Monocytes (%) (Auto) 9, Eosinophils (%) (Auto) 2, Basophils (%) (Auto) 0, Neutrophils # (Auto) 2.9, Lymphocytes # (Auto) 1.4, Monocytes # (Auto) 0.4, Eosinophils # (Auto) 0.1, Basophils # (Auto) 0.0, Sodium Level 139, Potassium Level 3.8, Chloride Level 107, Carbon Dioxide Level 24, Anion Gap 8, Blood Urea Nitrogen 5L, Creatinine 0.74, Estimat Glomerular Filtration Rate > 60, BUN/Creatinine Ratio 7, Glucose Level 101, Calcium Level 8.1L, Corrected Calcium 8.8, Total Bilirubin 0.2, Aspartate Amino Transf (AST/SGOT) 10, Alanine Aminotransferase (ALT/SGPT) 13, Alkaline Phosphatase 58, Total Protein 5.8L, Albumin 3.1L 02/12/20 08:10: White Blood Count 8.0, Red Blood Count 4.00L, Hemoglobin 11.1#L, Hematocrit 35, Mean Corpuscular Volume 87, Mean Corpuscular Hemoglobin 28, Mean Corpuscular Hemoglobin Concent 32, Red Cell Distribution Width 12.6, Platelet Count 182, Mean Platelet Volume 10.5H, Neutrophils (%) (Auto) 57, Lymphocytes (%) (Auto) 29, Monocytes (%) (Auto) 11, Eosinophils (%) (Auto) 2, Basophils (%) (Auto) 0, Neutrophils # (Auto) 4.6, Lymphocytes # (Auto) 2.3, Monocytes # (Auto) 0.9, Eosinophils # (Auto) 0.2, Basophils # (Auto) 0.0 Microbiology 02/10/20 Throat Culture - Preliminary, Resulted No Beta Strep isolated 02/10/20 Urine Culture - Final, Complete 3 or more isolates Home Meds Active No Active Prescriptions or Reported Medications Assessment/Pt Instructions [facility] 1 week Discharge Planning: <30 minutes discharge planning Discharge Physical Examination Vital Signs Vital Signs Date Time Temp Pulse Resp B/P (MAP) Pulse Ox O2 Delivery O2 Flow Rate FiO2 02/12/20 08:25 97 Room Air 02/12/20 08:19 36.0 96 22 117/85 (96) 02/11/20 15:54 21 General Appearance: No Apparent Distress, WD/WN, Chronically ill, Obese Allergies: Coded Allergies: No Known Drug Allergies (Unverified , 12/09/13) pt denies allergies Discharge Summary Date of Admission Feb 10, 2020 at 20:20 Date of Discharge Discharge Date: Feb 12, 2020 Admission Diagnosis Assessment: Sepsis Fever Cough Shortness of breath IV drug user Meth use Smoker UTI Chest pain Plan: IV abx for UTI Procalcitonin normal so narrow abx and DC Vanc and Zosyn Consult Cardiology to evaluate for endocarditis which I doubt but IV drug user is at high risk COVID swab pending Discharge Diagnosis (1) Chest pain (2) Methamphetamine abuse (3) Smoker (4) IV drug abuse (5) Sepsis Status: Acute Qualifiers: Qualified Codes: A41.9 - Sepsis, unspecified organism (6) Flu-like symptoms Status: Acute (7) Hemoptysis Status: Acute (8) IV drug user Status: Acute (9) Urinary tract infection Status: Acute Qualifiers: Qualified Codes: N39.0 - Urinary tract infection, site not specified Clinical Quality Measures DVT/VTE Risk/Contraindication: Risk Factor Score Per Nursin RFS Level Per Nursing on Admit: 4+=Very High SHILPI MILLER DO Feb 12, 2020 11:11
[2020-02-12 12:00] VITALS: BP 123/81
[2020-02-12 12:30] VITALS: BP 123/81
--- NOTE | 2020-02-14 11:23 | Physician Query Clarification ---
PQ-Conflicting Diagnosis Admission/Discharge Admission Date: Feb 10, 2020 at 20:20 Discharge Date: Feb 12, 2020 at 12:30 The medical record reflects the following clinical scenario: History/Risk Factors: Sepsis, UTI, hemoptysis, [employer], HTN, MOB Clinical Findings: SOA, dyspnea on exertion, productive cough, fever, P104, R20, CXR no evidence cardiopulmonary process Treatment: room air, Albuterol, IV Pipercillin, IV Vancomycin Question: Do you agree with the impression of the acute on chronic respiratory failure per Dr. Nichole? Please document a response in Progress Note or Discharge Summary. 1. Yes 2. No 3. Other, with explanation of clinical findings 4. Clinically undetermined, no explanation for clinical findings. PHYSICIAN RESPONSE Do you agree w/Consulting Dx?: No Please remember a lack of response to the above will prompt a phone page by [facility]/Coding staff. In responding to this query, please exercise your independent professional judgment. The purpose of this communication is to more accurately reflect the complexity of your patients condition. The fact that a question is asked does not imply that any particular answer is desired or expected. Thank you for your timely response to this clarification. Requestors name: Benny THIS PHYSICIAN QUERY FORM IS A PERMANENT PART OF THE MEDICAL RECORD BENNY LANDRY Feb 14, 2020 11:23 SHILPI MILLER DO Feb 14, 2020 21:20
== END 2020-02-12 12:30 | disposition home or self-care (01) | DRG 872 ==
LOC: EDUNIT# 18:08 → ER 18:09 → 4TH 20:20
PROVIDERS: ADMIT Internal Medicine; ATTEND Internal Medicine
PROC: 02HV33Z Insertion of Infusion Device into Superior Vena Cava, Percutaneous Approach (ICD-10-PCS; principal; 2020-02-11)
DX: A41.9 Sepsis, unspecified organism (principal); N39.0 Urinary tract infection, site not specified; R04.2 Hemoptysis; Z68.44 Body mass index [BMI] 60.0-69.9, adult; J44.9 Chronic obstructive pulmonary disease, unspecified; F17.210 Nicotine dependence, cigarettes, uncomplicated; I10 Essential (primary) hypertension; I49.9 Cardiac arrhythmia, unspecified; I87.2 Venous insufficiency (chronic) (peripheral); G47.30 Sleep apnea, unspecified; R60.9 Edema, unspecified; R11.0 Nausea; J02.9 Acute pharyngitis, unspecified; R61 Generalized hyperhidrosis; E66.01 Morbid (severe) obesity due to excess calories; E05.90 Thyrotoxicosis, unspecified without thyrotoxic crisis or storm; F90.9 Attention-deficit hyperactivity disorder, unspecified type; F41.9 Anxiety disorder, unspecified; F32.9 Major depressive disorder, single episode, unspecified; M19.91 Primary osteoarthritis, unspecified site; M54.9 Dorsalgia, unspecified; F15.10 Other stimulant abuse, uncomplicated; Z91.5 Personal history of self-harm; Z20.818 Contact with and (suspected) exposure to other bacterial communicable diseases
CPT/HCPCS: 36415; 71045; 80053; 80306; 81000; 83605; 84145; 84484; 84703; 85007; 85025; 85027; 85610; 85730; 86141; 87040; 87070; 87088; 87205; 87430; 87635; 87804; 94760; 96361; 96365; 96375